=== PATIENT | male | born 1975 | race Caucasian/White ===

== ENCOUNTER 2016-09-21 17:50 | Emergency (ER) | payer OTHER ==
[~2016-09-21] VITALS: Ht 181.6 cm; Wt 147.4 kg
--- NOTE | 2016-09-21 19:57 | ED UPPER/LOWER EXTREMITY COMPL ---
History of Present Illness General Chief Complaint: Lower Extremity Problems Stated Complaint: PT LEFT KNEE IS GIVING OUT Source: patient Exam Limitations: no limitations Vital Signs & Intake/Output Vital Signs & Intake/Output Vital Signs Date Time Temp Pulse Resp B/P Pulse O2 O2 Flow FiO2 Ox Delivery Rate 09/214 98.0 80 18 135/74 96 09/21 1758 97.3 85 20 137/87 98 Room Air Allergies Coded Allergies: NO KNOWN ALLERGIES (09/21/16) Reconcile Medications Ibuprofen 800 MG TABLET 1 TAB PO TID PRN pain Naproxen Sodium (Aleve) 220 MG CAPSULE 2-3 CAP PO PRN PAIN/INFLAMMATION ( Reported) Triage Note: TRIAGE: PT TO ER C/C L KNEE PAIN S/P KNEE GIVING OUT ON HIM X 2 YESTERDAY. PAIN IS CONSTANT SINCE ONSET. HAS TRIED ALEVE AND ICE WITH LITTLE RELIEF. Triage Nurses Notes Reviewed? yes Onset: Gradual Duration: day(s): Timing: recent history Severity: mild Pain/Injury Location: Left: Knee. Method of Injury: left knee pain... "I felt it give out" a few times. Modifying Factors: Improves With: rest. Worsens With: movement. Associated Symptoms: left knee pain HPI: 41-year-old gentleman presents with left knee pain for the past 1-2 days. He states that, "felt the knee give out." He states he had these episodes at least twice. He doesn't note any trauma or fall or increased exertion. He notes that it is better with rest. He notes that it is worse with ambulation and flexion. He is otherwise well and has no other concerns. He is no fever or chills shortness of breath or weakness. Past History Travel History Traveled to [place] past 21 day No Medical History Any Pertinent Medical History? see below for history Neurological: NONE EENT: NONE Cardiovascular: NONE Respiratory: NONE Gastrointestinal: NONE Hepatic: NONE Renal: NONE Musculoskeletal: FINGER FX Psychiatric: NONE Endocrine: NONE Blood Disorders: NONE Cancer(s): NONE OBSTETRICS SPECIALIST/Reproductive: NONE Surgical History Surgical History: none Psychosocial History What is your primary language Mexican Tobacco Use: Current Daily Use Daily Tobacco Use Amount/Type: => 5 Cigarettes daily ETOH Use: occasional use Illicit Drug Use: denies illicit drug use Family History Hx Contributory? No Review of Systems Review of Systems Constitutional: Reports: no symptoms. EENTM: Reports: no symptoms. Respiratory: Reports: no symptoms. Cardiovascular: Reports: no symptoms. Gastrointestinal/Abdominal: Reports: no symptoms. Genitourinary: Reports: no symptoms. Musculoskeletal: Reports: no symptoms. Skin: Reports: no symptoms. Neurological/Psychological: Reports: no symptoms. Hematologic/Endocrine: Reports: no symptoms. Immunological: Reports: no symptoms. All Other Systems: Reviewed and Negative Physical Exam Physical Exam General Appearance: well developed/nourished, mild distress Head: atraumatic Eyes: Bilateral: PERRL, EOMI. Ears, Nose, Throat: normal pharynx, normal ENT inspection, hearing grossly normal Neck: normal inspection, supple Cardiovascular/Respiratory: regular rate/rhythm Back: normal inspection Leg Left: left knee with stable ligaments, mild pain elicited on medial collateral ligaments with stress. no significant effusion. no rashes, no focal bony tenderness. Skin: intact, normal color, warm/dry Lymphatic: no anterior cervical eileen Progress Differential Diagnosis: contusion, sprain, tendon injury, meniscal tear Plan of Care: Orders Procedure Date/time Status XRY-KNEE COMPLETE LEFT 09/21 1932 Active Diagnostic Imaging: Viewed by Me: Radiology Read. Discussed w/RAD: Radiology Read. Radiology Impression: LEFT KNEE ... NORMAL... FULL REPORT BELOW. Comments: PATIENT: JB MIRELES PRESENT AGE: 41 PATIENT ACCOUNT NO: [id number] : 74 LOCATION: [facility] ORDERING PHYSICIAN: ADELE TUCKER MD SERVICE DATE: 09/21/16 EXAM TYPE: RAD - XRY-KNEE COMPLETE LEFT EXAMINATION: XR KNEE, LEFT CLINICAL INFORMATION: Left knee pain. COMPARISON: None TECHNIQUE: Four views of the left knee. FINDINGS: Bones and soft tissues are normal. No fracture or joint effusion. Alignment is anatomic. Joint spaces are well maintained. No abnormal soft tissue calcification. IMPRESSION: Normal left knee. DICTATED BY: YASH ALMEIDA MD DATE/TIME DICTATED:09/21/162045 RISK MODELER:LISA DATE/TIME TRANSCRIBED:09/21/162045 CONFIDENTIAL, DO NOT COPY WITHOUT APPROPRIATE AUTHORIZATION. <Electronically signed in Other Vendor System> SIGNED BY: YASH ALMEIDA MD 09/21/162049 Departure Departure Disposition: HOME OR SELF CARE Condition: Stable Clinical Impression Primary Impression: Left knee sprain Referrals: SESAR ALFRED DO (PCP/Family) Departure Forms: Customer Survey General Discharge Information Prescriptions: Current Visit Scripts Ibuprofen 1 TAB PO TID PRN pain #30 TAB Comments pt with benign exam... ivis wrap to left knee by RN.... pt referred to ortho for follow up... he may need mri to evaluate the meniscus.
[2016-09-21] MEDS ORDERED: ALEVE220 M1 PO (20:28)
--- NOTE | 2016-09-21 20:50 | RADIOLOGY REPORT ---
EXAMINATION: XR KNEE, LEFT CLINICAL INFORMATION: Left knee pain. COMPARISON: None TECHNIQUE: Four views of the left knee. FINDINGS: Bones and soft tissues are normal. No fracture or joint effusion. Alignment is anatomic. Joint spaces are well maintained. No abnormal soft tissue calcification. IMPRESSION: Normal left knee.
[2016-09-21] MEDS ORDERED: IBUPROFEN800 M1 PO (21:10)
[2016-09-21 21:14] VITALS: BP 135/74
== END 2016-09-21 21:15 ==
LOC: ERH 17:50
DX: S83.92XA Sprain of unspecified site of left knee, initial encounter (principal); X58.XXXA Exposure to other specified factors, initial encounter
CPT/HCPCS: 73562-LT